=== PATIENT | female | born 1980 | race Hispanic/Latino ===

== ENCOUNTER 2024-11-19 08:11 | Emergency (ER) | payer BC, OTHER ==
[~2024-11-19] VITALS: Ht 152.4 cm; Wt 67.8 kg
[2024-11-19] MEDS ORDERED: OXYCODONE H5 MG/5 ML PO (08:44)
[2024-11-19] MEDS ORDERED: ELIQUIS5 MG PT (08:44)
[2024-11-19] MEDS ORDERED: ONDANSETRON ODT4 MG PO (08:44)
[2024-11-19] MEDS ORDERED: METHOCARBAMOL750 MG PT (08:45)
[2024-11-19] MEDS ORDERED: GABAPENTIN250 MG/5 M PT (08:45)
[2024-11-19] MEDS ORDERED: CEPHALEXIN500 M1 PO (10:55)
[2024-11-19 11:00] VITALS: BP 105/69
== END 2024-11-19 11:00 | disposition home or self-care (01) ==
LOC: ED 08:11
DX: T85.848A Pain due to other internal prosthetic devices, implants and grafts, initial encounter (principal); Z79.899 Other long term (current) drug therapy; Z88.5 Allergy status to narcotic agent; Z88.8 Allergy status to other drugs, medicaments and biological substances
CPT/HCPCS: 74018; 99283